=== PATIENT | male | born 1985 | race Two or more races ===

== ENCOUNTER → 2022-07-13 | Emergency (ER) | payer OTHER ==
[~2022-07-13] VITALS: Ht 172.7 cm; Wt 71.7 kg
[~2022-07-13] MED LIST: BACTRIM DS TAB1 EACH PO; CEFADROXIL500 MG PO; DICLOFENAC SODI75 MG PO
== END | disposition home or self-care (01) ==
LOC: ER 10:00
DX: L05.91 Pilonidal cyst without abscess (principal)